=== PATIENT | female | born 1935 | race African-American/Black ===

== ENCOUNTER 2016-10-03 12:16 | Emergency (ER) | payer MEDICARE ==
[~2016-10-03] VITALS: Ht 171.4 cm; Wt 111.0 kg
[~2016-10-03 12:16] MED LIST: AZOPT LEFTEYE; BRIM10DR2 LEFTEYE; METH50TA4 PO; RIVA20TA PO; TRAV2.5D LEFTEYE; VERA240C2 PO
[2016-10-03 13:13] LABS: EOSINOPHILS % 3.2 % (0.0-5.0); HEMATOCRIT. 38.9 % (36.0-48.0); HEMOGLOBIN. 12.9 g/dL (12.0-16.0); LYMPHOCYTES % 33.7 % (20.0-50.0); MEAN CORPUSCULAR HEMOGLOBIN 30.1 pg (28.0-32.0); MEAN PLATELET VOLUME 8.7 fl (7.4-10.4); MONOCYTES % 9.8 % (2.0-8.0); NEUTROPHILS % 52.3 % (40.0-76.0); PLATELET 254 x1000/uL (130-400); RED BLOOD CELL COUNT 4.27 mill/uL (4.2-5.4); RED CELL DISTRIBUTION WIDTH 14.8 % (11.6-14.6)
[2016-10-03 13:21] LABS: INR 1.2; PROTHROMBIN TIME 12.4 sec
[2016-10-03 13:30] LABS: CARBON DIOXIDE 27 mEq/L (21-32); CHLORIDE 107 mEq/L (98-107); TROPONIN I < 0.02 ng/mL (0.00-0.04)
[2016-10-03 15:00] VITALS: BP 151/74
== END 2016-10-03 15:11 | disposition home or self-care (01) ==
LOC: ER 13:30
DX: R06.09 Other forms of dyspnea (principal); H40.9 Unspecified glaucoma; I10 Essential (primary) hypertension; Z86.711 Personal history of pulmonary embolism; Z79.01 Long term (current) use of anticoagulants; Z96.659 Presence of unspecified artificial knee joint
CPT/HCPCS: 36415; 71010; 80053; 83880; 84484; 85025; 85610; 93005; 93971; 99285

== ENCOUNTER 2018-06-03 09:35 | Emergency (ER) | payer MEDICARE ==
[~2018-06-03] VITALS: Ht 170.2 cm; Wt 109.0 kg
[~2018-06-03 09:35] MED LIST changes: -METH50TA4 PO; +METH50TA5 PO
[2018-06-03 09:38] VITALS: BP 168/64
== END 2018-06-03 14:39 | disposition left against medical advice (07) ==
LOC: ER 10:12
DX: Z53.21 Procedure and treatment not carried out due to patient leaving prior to being seen by health care provider (principal)

== ENCOUNTER 2018-11-12 14:29 | Emergency (ER) | payer MEDICARE ==
[~2018-11-12] VITALS: Ht 170.2 cm; Wt 80.0 kg
[~2018-11-12 14:29] MED LIST changes: +ACET-2708 MT; +FERR325T6 MT; +LORA10TA7 MT; -METH50TA5 PO; -RIVA20TA PO; +VALS160T28 MT; -VERA240C2 PO
[2018-11-12 16:04] LABS: CHLORIDE 110 mEq/L (98-107)
[2018-11-12 16:07] LABS: BASOPHILS % 1.2 % (0.0-2.0); EOSINOPHILS % 1.8 % (0.0-5.0); HEMATOCRIT. 30.5 % (36.0-48.0); HEMOGLOBIN. 10.2 g/dL (12.0-16.0); LYMPHOCYTES % 24.7 % (20.0-50.0); MEAN CORPUSCULAR VOLUME 92.9 fL (81.0-99.0); MEAN PLATELET VOLUME 8.8 fl (7.4-10.4); MONOCYTES % 11.1 % (2.0-8.0); NEUTROPHILS % 61.2 % (40.0-76.0); PLATELET 245 x1000/uL (130-400); RED BLOOD CELL COUNT 3.28 mill/uL (4.2-5.4); RED CELL DISTRIBUTION WIDTH 15.9 % (11.6-14.6)
[2018-11-12 17:08] VITALS: BP 140/58
== END 2018-11-12 18:36 | disposition home or self-care (01) ==
LOC: ER 14:29 → CANBEDREQ 19:20
DX: R55 Syncope and collapse (principal); D64.9 Anemia, unspecified; I10 Essential (primary) hypertension; Z96.659 Presence of unspecified artificial knee joint; Z87.19 Personal history of other diseases of the digestive system; Z79.01 Long term (current) use of anticoagulants
CPT/HCPCS: 36415; 71045; 83880; 84484; 93005; 99284

== ENCOUNTER 2019-06-01 05:51 | Inpatient (IN) | payer MEDICARE ==
[~2019-06-01] VITALS: Ht 172.7 cm; Wt 108.0 kg
[2019-06-01] MEDS ORDERED: LACTATED RINGERS 1,000 ML IV SCH (06:00)
[2019-06-01 07:13] LABS: CLARITY URINE CLEAR (CLEAR); COLOR URINE YELLOW (YELLOW); KETONES URINE NEGATIVE (NEGATIVE); LEUKOCYTE ESTERASE URINE TRACE (NEGATIVE); NITRITE URINE NEGATIVE (NEGATIVE); OCCULT BLOOD URINE NEGATIVE (NEGATIVE); PROTEIN URINE NEGATIVE (NEGATIVE); SPECIFIC GRAVITY URINE 1.012 (1.005-1.030); UROBILINOGEN URINE 0.2 E.U./dL (0.2-1.0)
[2019-06-01] MEDS ORDERED: TRANEXAMIC ACID 1,000 MG in SODIUM CHLORIDE 0.9% 100 ML IV SCH (07:30)
[2019-06-01] MEDS ORDERED: FENTANYL CITRATE/PF 50MCG/ML 2ML VIAL ONE (08:17)
[2019-06-01] MEDS ORDERED: PROPOFOL 200MG/20ML VIAL IV ONE (08:17)
[2019-06-01] MEDS ORDERED: EPHEDRINE SULFATE 50MG/ML VIAL ONE (08:18)
[2019-06-01] MEDS ORDERED: ONDANSETRON HCL 4MG/2ML INJ ONE (08:18)
[2019-06-01] MEDS ORDERED: METOCLOPRAMIDE HCL 10MG/2ML VIAL ONE (08:18)
[2019-06-01] MEDS ORDERED: CEFAZOLIN SODIUM 1000MG/VIAL ONE (08:18)
[2019-06-01] MEDS ORDERED: HYDROCORTISONE SOD SUCCINATE 100 MG/2 ML VIAL ONE (08:18)
[2019-06-01] MEDS ORDERED: LIDOCAINE HCL/PF 1% 10 MG/ML 5ML VIAL ONE (08:18)
[2019-06-01] MEDS ORDERED: ROCURONIUM BROMIDE 10MG/ML VIAL 5ML IV ONE ×2 (08:19→09:38)
[2019-06-01] MEDS ORDERED: MIDAZOLAM HCL 2 MG/2 ML VIAL ONE (08:43)
[2019-06-01] MEDS ORDERED: ACETAMINOPHEN 325MG TABLET PO PRN (08:45)
[2019-06-01] MEDS ORDERED: HYDROCODONE/ACETAMINOPHEN 5/325MG TABLET PO PRN ×2 (08:45)
[2019-06-01] MEDS ORDERED: ONDANSETRON HCL 4MG/2ML INJ IV PRN (08:45)
[2019-06-01] MEDS ORDERED: ZOLPIDEM TARTRATE 5MG TABLET PO PRN (08:45)
[2019-06-01] MEDS ORDERED: MAGNESIUM HYDROXIDE 400MG/5ML 30ML UDC PO PRN (08:45)
[2019-06-01] MEDS ORDERED: EPINEPHRINE 1:1000 1 MG/ML AMP ONE (09:31)
[2019-06-01 09:32] LABS: CLARITY URINE CLEAR (CLEAR); COLOR URINE YELLOW (YELLOW); KETONES URINE NEGATIVE (NEGATIVE); LEUKOCYTE ESTERASE URINE NEGATIVE (NEGATIVE); NITRITE URINE NEGATIVE (NEGATIVE); OCCULT BLOOD URINE NEGATIVE (NEGATIVE); PROTEIN URINE NEGATIVE (NEGATIVE); SPECIFIC GRAVITY URINE 1.007 (1.005-1.030); UROBILINOGEN URINE 0.2 E.U./dL (0.2-1.0)
[2019-06-01] MEDS ORDERED: NAPR220T66 PO (12:32)
[2019-06-01] MEDS ORDERED: GLYCOPYRROLATE 0.2 MG/ML 2ML VIAL ONE (14:08)
[2019-06-01] MEDS ORDERED: NEOSTIGMINE METHYLSULFATE 1MG/ML 10 ML VIAL ONE (14:08)
[2019-06-01] MEDS: HYDROMORPHONE HCL/PF 2MG/ML CPJ IV PRN ×2 (14:43→15:05)
[2019-06-01] MEDS ORDERED: MORPHINE PCA 50MG/50ML IV PRN (15:30)
[2019-06-01] MEDS ORDERED: NALOXONE INJ IV PRN (15:30)
[2019-06-01] MEDS ORDERED: ONDANSETRON INJ IV PRN (15:30)
[2019-06-01] MEDS ORDERED: DIPHENHYDRAMINE INJ IV PRN (15:30)
[2019-06-01 18:02] VITALS: BP 127/51
[2019-06-01 20:00] VITALS: BP 126/46
[2019-06-01] MEDS: CEFAZOLIN 2,000 MG in DEXT 5% WATER 100 ML IV SCH (20:08)
[2019-06-02] VITALS: BP 116/45
[2019-06-02 04:00] VITALS: BP 124/52
[2019-06-02 06:27] LABS: BASOPHILS % 0.3 % (0.0-2.0); EOSINOPHILS % 0.1 % (0.0-5.0); HEMATOCRIT. 31.4 % (36.0-48.0); HEMOGLOBIN. 10.6 g/dL (12.0-16.0); LYMPHOCYTES % 14.1 % (20.0-50.0); MEAN CORPUSCULAR HEMOGLOBIN 30.8 pg (28.0-32.0); MEAN CORPUSCULAR VOLUME 91.1 fL (81.0-99.0); MEAN PLATELET VOLUME 8.7 fl (7.4-10.4); MONOCYTES % 11.2 % (2.0-8.0); NEUTROPHILS % 74.3 % (40.0-76.0); PLATELET 196 x1000/uL (130-400); RED BLOOD CELL COUNT 3.45 mill/uL (4.2-5.4); RED CELL DISTRIBUTION WIDTH 15.8 % (11.6-14.6)
[2019-06-02 06:30] LABS: CHLORIDE 111 mEq/L (98-107)
[2019-06-02 08:00] VITALS: BP 109/40
[2019-06-02] MEDS: ENOXAPARIN 30MG/0.3ML SYR SUBCUT SCH ×2 (08:39→21:09)
[2019-06-02] MEDS: CEFAZOLIN 2,000 MG in DEXT 5% WATER 100 ML IV SCH (08:39)
[2019-06-02 12:00] VITALS: BP 117/46
[2019-06-02] MEDS: LOSARTAN POTASSIUM 50 MG TABLET PO SCH (13:00)
[2019-06-02 16:00] VITALS: BP 117/55
[2019-06-02] MEDS ORDERED: TRAMADOL HCL/ACETAMINOPHEN 37.5/325MG TABLET PO PRN (17:45)
[2019-06-02 20:00] VITALS: BP 115/45
[2019-06-02] MEDS: LATANOPROST 0.005% OPHTH DROPS 2.5ML BOTHEYE SCH ×2 (21:00→21:08)
[2019-06-02] MEDS: DORZOLAMIDE 2% OPHTH 10 ML BOTTLE BOTHEYE SCH ×2 (21:00→21:08)
[2019-06-02] MEDS: BRIMONIDINE 0.2% OPHTH DROPS 5ML BOTHEYE SCH (21:08)
[2019-06-02] MEDS: TIMOLOL MALEATE 0.25% OPHTH DROPS 5ML EACHEYE SCH (21:08)
[2019-06-03] VITALS: BP 117/55
[2019-06-03 04:00] VITALS: BP 119/46
[2019-06-03 08:00] VITALS: BP 120/51
[2019-06-03] MEDS: DORZOLAMIDE 2% OPHTH 10 ML BOTTLE BOTHEYE SCH ×2 (09:01→21:18)
[2019-06-03] MEDS: BRIMONIDINE 0.2% OPHTH DROPS 5ML BOTHEYE SCH ×2 (09:01→21:18)
[2019-06-03] MEDS: TIMOLOL MALEATE 0.25% OPHTH DROPS 5ML EACHEYE SCH ×2 (09:01→21:18)
[2019-06-03] MEDS: ENOXAPARIN 30MG/0.3ML SYR SUBCUT SCH ×2 (09:02→21:22)
[2019-06-03] MEDS: LOSARTAN POTASSIUM 50 MG TABLET PO SCH (09:03)
[2019-06-03] MEDS: FERROUS SULFATE 325MG TABLET PO SCH (09:03)
[2019-06-03] MEDS: DOCUSATE SODIUM 100MG CAPSULE PO SCH ×2 (09:03→18:50)
[2019-06-03 12:00] VITALS: BP 99/46
[2019-06-03 16:00] VITALS: BP 131/50
[2019-06-03] MEDS: LACTULOSE 20G/30ML UDC PO SCH ×2 (17:15→21:00)
[2019-06-03] MEDS ORDERED: SODIUM CHLORIDE 0.9% 1,000 ML IV SCH (18:30)
[2019-06-03 20:00] VITALS: BP 128/60
[2019-06-03] MEDS ORDERED: POLYETHYLENE GLYCOL 3350 (17GM) 1 DOSE PACK PO SCH (21:00)
[2019-06-03] MEDS: LATANOPROST 0.005% OPHTH DROPS 2.5ML BOTHEYE SCH (21:18)
[2019-06-04] VITALS: BP 122/58
[2019-06-04 04:00] VITALS: BP 133/54
[2019-06-04 07:01] LABS: BASOPHILS % 0.5 % (0.0-2.0); EOSINOPHILS % 0.4 % (0.0-5.0); HEMOGLOBIN. 8.7 g/dL (12.0-16.0); LYMPHOCYTES % 19.9 % (20.0-50.0); MEAN CORPUSCULAR HEMOGLOBIN 30.4 pg (28.0-32.0); MEAN CORPUSCULAR VOLUME 90.5 fL (81.0-99.0); MEAN PLATELET VOLUME 9.2 fl (7.4-10.4); MONOCYTES % 12.5 % (2.0-8.0); NEUTROPHILS % 66.7 % (40.0-76.0); PLATELET 154 x1000/uL (130-400); RED BLOOD CELL COUNT 2.88 mill/uL (4.2-5.4); RED CELL DISTRIBUTION WIDTH 15.7 % (11.6-14.6)
[2019-06-04 08:00] VITALS: BP 145/50
[2019-06-04] MEDS: FERROUS SULFATE 325MG TABLET PO SCH (08:51)
[2019-06-04] MEDS: DOCUSATE SODIUM 100MG CAPSULE PO SCH (08:51)
[2019-06-04] MEDS: ENOXAPARIN 30MG/0.3ML SYR SUBCUT SCH (08:52)
[2019-06-04] MEDS: LACTULOSE 20G/30ML UDC PO SCH ×2 (08:52→13:28)
[2019-06-04] MEDS: DORZOLAMIDE 2% OPHTH 10 ML BOTTLE BOTHEYE SCH (08:55)
[2019-06-04] MEDS: BRIMONIDINE 0.2% OPHTH DROPS 5ML BOTHEYE SCH (08:55)
[2019-06-04] MEDS: TIMOLOL MALEATE 0.25% OPHTH DROPS 5ML EACHEYE SCH (08:55)
[2019-06-04] MEDS ORDERED: DOCUSATE SODIUM 100MG CAPSULE PO SCH (09:00)
[2019-06-04 12:00] VITALS: BP 143/56
[2019-06-04 15:17] VITALS: BP 145/64
== END 2019-06-04 16:11 | DRG 469 ==
LOC: OR 05:51 → 6EST 05:52
PROVIDERS: ADMIT Internal Medicine; ATTEND Orthopaedic Surgery
PROC: 0SR902Z Replacement of Right Hip Joint with Metal on Polyethylene Synthetic Substitute, Open Approach (ICD-10-PCS; principal; 2019-06-01)
DX: M16.11 Unilateral primary osteoarthritis, right hip (principal); G93.41 Metabolic encephalopathy; G82.50 Quadriplegia, unspecified; E66.01 Morbid (severe) obesity due to excess calories; E11.36 Type 2 diabetes mellitus with diabetic cataract; E11.22 Type 2 diabetes mellitus with diabetic chronic kidney disease; I12.9 Hypertensive chronic kidney disease with stage 1 through stage 4 chronic kidney disease, or unspecified chronic kidney disease; I95.1 Orthostatic hypotension; M47.812 Spondylosis without myelopathy or radiculopathy, cervical region; M47.816 Spondylosis without myelopathy or radiculopathy, lumbar region; N18.1 Chronic kidney disease, stage 1; Z96.651 Presence of right artificial knee joint; Z79.01 Long term (current) use of anticoagulants; G89.29 Other chronic pain; Z87.440 Personal history of urinary (tract) infections; Z86.711 Personal history of pulmonary embolism; Z90.49 Acquired absence of other specified parts of digestive tract; Z79.899 Other long term (current) drug therapy; Z68.36 Body mass index [BMI] 36.0-36.9, adult; D64.9 Anemia, unspecified
CPT/HCPCS: 36415; 73502; 80048; 81003; 82962; 85025; 86850; 86900; 88305; 88311; 93005; 97110; 97116; 97162; 97166; 97530; 97535; C1776; J0171; J0690; J1170; J1650; J1720; J2250; J2270; J2274; J2405; J2704; J2710; J2765; J3010; J3370; J3490; J7030; J7050; J7060

== ENCOUNTER 2019-06-04 16:15 | Inpatient (IN) | payer MEDICARE ==
[~2019-06-04] VITALS: Ht 172.7 cm; Wt 108.0 kg
[~2019-06-04 16:15] MED LIST changes: +NAPR220T66 PO
[2019-06-04 16:47] VITALS: BP 156/59
[2019-06-04] MEDS ORDERED: TRAMADOL HCL/ACETAMINOPHEN 37.5/325MG TABLET PO PRN (17:15)
[2019-06-04] MEDS ORDERED: MAGNESIUM HYDROXIDE 400MG/5ML 30ML UDC PO PRN (17:15)
[2019-06-04] MEDS ORDERED: ONDANSETRON HCL 4MG/2ML INJ IV PRN (17:33)
[2019-06-04] MEDS ORDERED: NALOXONE HCL 1 MG/ML 2ML VIAL IV PRN (18:00)
[2019-06-04 18:01] VITALS: BP 156/59
[2019-06-04] MEDS: LACTULOSE 20G/30ML UDC PO SCH (21:00)
[2019-06-04] MEDS ORDERED: SODIUM CHLORIDE 0.9% 1,000 ML IV SCH (21:00)
[2019-06-04] MEDS: ENOXAPARIN 30MG/0.3ML SYR SUBCUT SCH (21:27)
[2019-06-04] MEDS: TIMOLOL MALEATE 0.25% OPHTH DROPS 5ML EACHEYE SCH (21:33)
[2019-06-04] MEDS: DORZOLAMIDE 2% OPHTH 10 ML BOTTLE BOTHEYE SCH (21:33)
[2019-06-04] MEDS: BRIMONIDINE 0.2% OPHTH DROPS 5ML BOTHEYE SCH (21:33)
[2019-06-04] MEDS: LATANOPROST 0.005% OPHTH DROPS 2.5ML BOTHEYE SCH (21:33)
[2019-06-05 07:07] LABS: BASOPHILS % 1.1 % (0.0-2.0); EOSINOPHILS % 0.9 % (0.0-5.0); HEMOGLOBIN. 8.9 g/dL (12.0-16.0); LYMPHOCYTES % 20.4 % (20.0-50.0); MEAN CORPUSCULAR HEMOGLOBIN 30.9 pg (28.0-32.0); MEAN CORPUSCULAR VOLUME 90.8 fL (81.0-99.0); MEAN PLATELET VOLUME 9.1 fl (7.4-10.4); MONOCYTES % 13.9 % (2.0-8.0); NEUTROPHILS % 63.7 % (40.0-76.0); PLATELET 202 x1000/uL (130-400); RED BLOOD CELL COUNT 2.86 mill/uL (4.2-5.4); RED CELL DISTRIBUTION WIDTH 15.6 % (11.6-14.6)
[2019-06-05 07:36] LABS: CHLORIDE 110 mEq/L (98-107)
[2019-06-05 08:21] VITALS: BP 176/63
[2019-06-05 08:23] VITALS: BP 158/72
[2019-06-05] MEDS: DOCUSATE SODIUM 100MG CAPSULE PO SCH ×2 (08:52→16:25)
[2019-06-05] MEDS: POLYETHYLENE GLYCOL 3350 (17GM) 1 DOSE PACK PO SCH (08:52)
[2019-06-05] MEDS: FERROUS SULFATE 325MG TABLET PO SCH (08:52)
[2019-06-05] MEDS: LACTULOSE 20G/30ML UDC PO SCH (08:52)
[2019-06-05] MEDS: ENOXAPARIN 30MG/0.3ML SYR SUBCUT SCH ×2 (08:53→21:08)
[2019-06-05] MEDS: DORZOLAMIDE 2% OPHTH 10 ML BOTTLE BOTHEYE SCH ×2 (08:53→21:09)
[2019-06-05] MEDS: TIMOLOL MALEATE 0.25% OPHTH DROPS 5ML EACHEYE SCH ×2 (08:53→21:09)
[2019-06-05] MEDS: BRIMONIDINE 0.2% OPHTH DROPS 5ML BOTHEYE SCH ×2 (08:54→21:09)
[2019-06-05] MEDS ORDERED: LACTULOSE 20G/30ML UDC PO SCH (13:00)
[2019-06-05 20:00] VITALS: BP 169/54
[2019-06-05] MEDS: LATANOPROST 0.005% OPHTH DROPS 2.5ML BOTHEYE SCH (21:09)
[2019-06-06 07:00] LABS: HEMATOCRIT. 24.4 % (36.0-48.0); HEMOGLOBIN. 8.3 g/dL (12.0-16.0); MEAN CORPUSCULAR HEMOGLOBIN 30.7 pg (28.0-32.0); MEAN CORPUSCULAR VOLUME 90.7 fL (81.0-99.0); PLATELET 208 x1000/uL (130-400); RED BLOOD CELL COUNT 2.69 mill/uL (4.2-5.4); RED CELL DISTRIBUTION WIDTH 15.4 % (11.6-14.6)
[2019-06-06 07:01] LABS: CHLORIDE 111 mEq/L (98-107)
[2019-06-06 07:12] LABS: PHOSPHORUS 2.4 mg/dL (2.5-4.9)
[2019-06-06 07:13] LABS: TOTAL IRON BINDING CAPACITY 243 ug/dL (250-450)
[2019-06-06 07:20] LABS: FOLIC ACID (FOLATE) SERUM 13.5 ng/mL (>5.38)
[2019-06-06 08:15] VITALS: BP 154/74
[2019-06-06] MEDS: DOCUSATE SODIUM 100MG CAPSULE PO SCH ×2 (09:00→18:10)
[2019-06-06] MEDS ORDERED: LOSARTAN POTASSIUM 25 MG TABLET PO SCH (09:00)
[2019-06-06] MEDS: POLYETHYLENE GLYCOL 3350 (17GM) 1 DOSE PACK PO SCH ×2 (09:00→09:36)
[2019-06-06] MEDS: LACTULOSE 20G/30ML UDC PO SCH ×4 (09:00→21:49)
[2019-06-06] MEDS: ACETAMINOPHEN 325MG TABLET PO PRN (09:06)
[2019-06-06] MEDS: BRIMONIDINE 0.2% OPHTH DROPS 5ML BOTHEYE SCH ×2 (09:33→21:51)
[2019-06-06] MEDS: DORZOLAMIDE 2% OPHTH 10 ML BOTTLE BOTHEYE SCH ×2 (09:34→21:50)
[2019-06-06] MEDS: TIMOLOL MALEATE 0.25% OPHTH DROPS 5ML EACHEYE SCH ×2 (09:35→21:51)
[2019-06-06] MEDS: FERROUS SULFATE 325MG TABLET PO SCH ×2 (09:36→18:10)
[2019-06-06] MEDS: ENOXAPARIN 30MG/0.3ML SYR SUBCUT SCH ×2 (09:36→21:49)
[2019-06-06 11:44] LABS: PLATELET ESTIMATE NORMAL
[2019-06-06] MEDS: CYANOCOBALAMIN 1000MCG/ML VIAL IM ONE (13:00)
[2019-06-06] MEDS ORDERED: THROAT LOZENGES-BENZOCAINE/MENTH/CETYLPYRD CL LOZENGES MM PRN ×2 (13:00→14:00)
[2019-06-06 13:05] LABS: CLARITY URINE CLEAR (CLEAR); COLOR URINE YELLOW (YELLOW); KETONES URINE NEGATIVE (NEGATIVE); LEUKOCYTE ESTERASE URINE NEGATIVE (NEGATIVE); NITRITE URINE NEGATIVE (NEGATIVE); OCCULT BLOOD URINE NEGATIVE (NEGATIVE); PH URINE 6.5 (4.5-8.0); PROTEIN URINE 1+ (NEGATIVE); SPECIFIC GRAVITY URINE 1.015 (1.005-1.030)
[2019-06-06] MEDS ORDERED: FERROUS SULFATE 325MG TABLET PO SCH (17:00)
[2019-06-06] MEDS ORDERED: CYANOCOBALAMIN 1000MCG/ML VIAL IM NR (18:15)
[2019-06-06 20:05] VITALS: BP 154/51
[2019-06-06] MEDS ORDERED: IRON SUCROSE COMPLEX 100 MG in SODIUM CHLORIDE 0.9% 100 ML IV SCH (21:00)
[2019-06-06] MEDS: LATANOPROST 0.005% OPHTH DROPS 2.5ML BOTHEYE SCH (21:51)
[2019-06-07] MEDS: LOSARTAN POTASSIUM 25 MG TABLET PO SCH ×3 (00:25→20:59)
[2019-06-07 00:30] VITALS: BP 143/63
[2019-06-07 06:47] LABS: BASOPHILS % 1.2 % (0.0-2.0); HEMATOCRIT. 25.3 % (36.0-48.0); HEMOGLOBIN. 8.5 g/dL (12.0-16.0); LYMPHOCYTES % 30.2 % (20.0-50.0); MEAN CORPUSCULAR HEMOGLOBIN 30.3 pg (28.0-32.0); MEAN CORPUSCULAR VOLUME 90.3 fL (81.0-99.0); MEAN PLATELET VOLUME 8.5 fl (7.4-10.4); MONOCYTES % 14.4 % (2.0-8.0); NEUTROPHILS % 50.2 % (40.0-76.0); PLATELET 242 x1000/uL (130-400); RED BLOOD CELL COUNT 2.81 mill/uL (4.2-5.4); RED CELL DISTRIBUTION WIDTH 14.8 % (11.6-14.6)
[2019-06-07 07:05] LABS: CHLORIDE 110 mEq/L (98-107)
[2019-06-07 07:56] VITALS: BP 123/58
[2019-06-07] MEDS: TIMOLOL MALEATE 0.25% OPHTH DROPS 5ML EACHEYE SCH ×2 (08:31→21:00)
[2019-06-07] MEDS: LACTULOSE 20G/30ML UDC PO SCH ×5 (08:31→20:59)
[2019-06-07] MEDS: ENOXAPARIN 30MG/0.3ML SYR SUBCUT SCH ×2 (08:31→20:59)
[2019-06-07] MEDS: BRIMONIDINE 0.2% OPHTH DROPS 5ML BOTHEYE SCH ×2 (08:31→20:58)
[2019-06-07] MEDS: DORZOLAMIDE 2% OPHTH 10 ML BOTTLE BOTHEYE SCH ×2 (08:31→20:58)
[2019-06-07] MEDS: FERROUS SULFATE 325MG TABLET PO SCH ×2 (08:31→17:25)
[2019-06-07] MEDS: DOCUSATE SODIUM 100MG CAPSULE PO SCH ×2 (08:31→17:25)
[2019-06-07] MEDS: POLYETHYLENE GLYCOL 3350 (17GM) 1 DOSE PACK PO SCH (08:59)
[2019-06-07] MEDS: TRAMADOL 50MG TABLET PO PRN (12:54)
[2019-06-07 20:00] VITALS: BP 151/56
[2019-06-07] MEDS: LATANOPROST 0.005% OPHTH DROPS 2.5ML BOTHEYE SCH (20:58)
[2019-06-08 07:49] VITALS: BP 137/58
[2019-06-08 08:00] VITALS: BP 137/58
[2019-06-08] MEDS: TRAMADOL 50MG TABLET PO PRN (08:31)
[2019-06-08] MEDS: DOCUSATE SODIUM 100MG CAPSULE PO SCH ×2 (08:31→16:13)
[2019-06-08] MEDS: LOSARTAN POTASSIUM 25 MG TABLET PO SCH ×2 (08:31→21:00)
[2019-06-08] MEDS: FERROUS SULFATE 325MG TABLET PO SCH ×2 (08:31→16:13)
[2019-06-08] MEDS: TIMOLOL MALEATE 0.25% OPHTH DROPS 5ML EACHEYE SCH ×2 (08:32→20:59)
[2019-06-08] MEDS: BRIMONIDINE 0.2% OPHTH DROPS 5ML BOTHEYE SCH ×2 (08:32→20:58)
[2019-06-08] MEDS: LACTULOSE 20G/30ML UDC PO SCH ×5 (08:32→21:00)
[2019-06-08] MEDS: DORZOLAMIDE 2% OPHTH 10 ML BOTTLE BOTHEYE SCH ×2 (08:32→20:58)
[2019-06-08] MEDS: POLYETHYLENE GLYCOL 3350 (17GM) 1 DOSE PACK PO SCH (08:32)
[2019-06-08] MEDS: ENOXAPARIN 30MG/0.3ML SYR SUBCUT SCH ×2 (08:32→20:57)
[2019-06-08] MEDS: ACETAMINOPHEN 325MG TABLET PO PRN ×2 (13:01→21:20)
[2019-06-08] MEDS: IBUPROFEN 200MG TABLET PO SCH (17:36)
[2019-06-08] MEDS: LIDOCAINE 5% PATCH TOP SCH (17:37)
[2019-06-08] MEDS: ACETAMINOPHEN 325MG TABLET PO SCH (17:37)
[2019-06-08 20:00] VITALS: BP 119/58
[2019-06-08] MEDS: LATANOPROST 0.005% OPHTH DROPS 2.5ML BOTHEYE SCH (20:58)
[2019-06-09] MEDS: IBUPROFEN 200MG TABLET PO SCH ×3 (07:48→17:00)
[2019-06-09 08:00] VITALS: BP 142/61
[2019-06-09] MEDS: DOCUSATE SODIUM 100MG CAPSULE PO SCH ×2 (08:46→17:00)
[2019-06-09] MEDS: FERROUS SULFATE 325MG TABLET PO SCH ×2 (08:46→17:38)
[2019-06-09] MEDS: POLYETHYLENE GLYCOL 3350 (17GM) 1 DOSE PACK PO SCH (08:47)
[2019-06-09] MEDS: ACETAMINOPHEN 325MG TABLET PO SCH ×3 (08:47→17:38)
[2019-06-09] MEDS: LACTULOSE 20G/30ML UDC PO SCH ×4 (08:47→21:00)
[2019-06-09] MEDS: LOSARTAN POTASSIUM 25 MG TABLET PO SCH ×2 (08:47→21:36)
[2019-06-09] MEDS: BRIMONIDINE 0.2% OPHTH DROPS 5ML BOTHEYE SCH ×2 (08:48→21:36)
[2019-06-09] MEDS: DORZOLAMIDE 2% OPHTH 10 ML BOTTLE BOTHEYE SCH ×2 (08:50→21:35)
[2019-06-09] MEDS: TIMOLOL MALEATE 0.25% OPHTH DROPS 5ML EACHEYE SCH ×2 (08:51→21:36)
[2019-06-09] MEDS: LIDOCAINE 5% PATCH TOP SCH (08:58)
[2019-06-09] MEDS: ENOXAPARIN 30MG/0.3ML SYR SUBCUT SCH ×2 (08:58→21:37)
[2019-06-09] MEDS: OMEPRAZOLE 20MG CAPSULE EXTENDED RELEASE PO SCH (17:38)
[2019-06-09 20:00] VITALS: BP 157/54
[2019-06-09] MEDS: LATANOPROST 0.005% OPHTH DROPS 2.5ML BOTHEYE SCH (21:36)
[2019-06-10] MEDS: OMEPRAZOLE 20MG CAPSULE EXTENDED RELEASE PO SCH (06:18)
[2019-06-10 07:00] LABS: BASOPHILS % 1.2 % (0.0-2.0); EOSINOPHILS % 3.8 % (0.0-5.0); HEMATOCRIT. 26.1 % (36.0-48.0); HEMOGLOBIN. 8.8 g/dL (12.0-16.0); LYMPHOCYTES % 35.2 % (20.0-50.0); MEAN CORPUSCULAR HEMOGLOBIN 30.9 pg (28.0-32.0); MEAN CORPUSCULAR VOLUME 91.6 fL (81.0-99.0); MEAN PLATELET VOLUME 8.3 fl (7.4-10.4); MONOCYTES % 10.9 % (2.0-8.0); NEUTROPHILS % 48.9 % (40.0-76.0); PLATELET 360 x1000/uL (130-400); RED BLOOD CELL COUNT 2.85 mill/uL (4.2-5.4); RED CELL DISTRIBUTION WIDTH 15.5 % (11.6-14.6)
[2019-06-10 07:12] LABS: CHLORIDE 111 mEq/L (98-107)
[2019-06-10] MEDS: IBUPROFEN 200MG TABLET PO SCH ×2 (07:33→12:35)
[2019-06-10 08:00] VITALS: BP 131/63
[2019-06-10] MEDS: LOSARTAN POTASSIUM 25 MG TABLET PO SCH ×2 (08:53→21:21)
[2019-06-10] MEDS: FERROUS SULFATE 325MG TABLET PO SCH ×2 (08:53→16:40)
[2019-06-10] MEDS: ACETAMINOPHEN 325MG TABLET PO SCH ×3 (08:53→16:40)
[2019-06-10] MEDS: DOCUSATE SODIUM 100MG CAPSULE PO SCH ×2 (08:53→16:40)
[2019-06-10] MEDS: LACTULOSE 20G/30ML UDC PO SCH ×4 (08:54→21:00)
[2019-06-10] MEDS: POLYETHYLENE GLYCOL 3350 (17GM) 1 DOSE PACK PO SCH (08:54)
[2019-06-10] MEDS: ENOXAPARIN 30MG/0.3ML SYR SUBCUT SCH ×2 (08:54→21:24)
[2019-06-10] MEDS: LIDOCAINE 5% PATCH TOP SCH (08:54)
[2019-06-10] MEDS: BRIMONIDINE 0.2% OPHTH DROPS 5ML BOTHEYE SCH ×2 (08:56→21:20)
[2019-06-10] MEDS: DORZOLAMIDE 2% OPHTH 10 ML BOTTLE BOTHEYE SCH ×2 (08:56→21:20)
[2019-06-10] MEDS: TIMOLOL MALEATE 0.25% OPHTH DROPS 5ML EACHEYE SCH ×2 (08:57→21:20)
[2019-06-10 13:06] LABS: 25-HYDROXY VITAMIN D3 19 ng/mL (.)
[2019-06-10] MEDS ORDERED: ERGOCALCIFEROL 50000UNITS CAPSULE PO SCH ×2 (18:00→21:00)
[2019-06-10 20:00] VITALS: BP 132/55
[2019-06-10] MEDS: LATANOPROST 0.005% OPHTH DROPS 2.5ML BOTHEYE SCH (21:20)
[2019-06-11] MEDS: OMEPRAZOLE 20MG CAPSULE EXTENDED RELEASE PO SCH (06:21)
[2019-06-11 08:00] VITALS: BP 137/54
[2019-06-11] MEDS: POLYETHYLENE GLYCOL 3350 (17GM) 1 DOSE PACK PO SCH (08:32)
[2019-06-11] MEDS: ENOXAPARIN 30MG/0.3ML SYR SUBCUT SCH ×2 (08:34→22:48)
[2019-06-11] MEDS: LIDOCAINE 5% PATCH TOP SCH (08:39)
[2019-06-11] MEDS: ACETAMINOPHEN 325MG TABLET PO PRN (08:39)
[2019-06-11] MEDS: DOCUSATE SODIUM 100MG CAPSULE PO SCH ×2 (08:40→17:34)
[2019-06-11] MEDS: LOSARTAN POTASSIUM 25 MG TABLET PO SCH ×2 (08:40→22:47)
[2019-06-11] MEDS: BRIMONIDINE 0.2% OPHTH DROPS 5ML BOTHEYE SCH ×2 (08:40→22:53)
[2019-06-11] MEDS: FERROUS SULFATE 325MG TABLET PO SCH ×2 (08:40→17:34)
[2019-06-11] MEDS: TIMOLOL MALEATE 0.25% OPHTH DROPS 5ML EACHEYE SCH ×2 (08:40→22:52)
[2019-06-11] MEDS: DORZOLAMIDE 2% OPHTH 10 ML BOTTLE BOTHEYE SCH ×2 (08:41→22:53)
[2019-06-11 20:00] VITALS: BP 145/46
[2019-06-11] MEDS: LATANOPROST 0.005% OPHTH DROPS 2.5ML BOTHEYE SCH (22:52)
[2019-06-12] MEDS: OMEPRAZOLE 20MG CAPSULE EXTENDED RELEASE PO SCH (07:00)
[2019-06-12 07:50] VITALS: BP 132/59
[2019-06-12] MEDS: LOSARTAN POTASSIUM 25 MG TABLET PO SCH ×2 (08:02→21:07)
[2019-06-12] MEDS: FERROUS SULFATE 325MG TABLET PO SCH ×2 (08:03→17:00)
[2019-06-12] MEDS: DOCUSATE SODIUM 100MG CAPSULE PO SCH ×2 (08:03→17:00)
[2019-06-12] MEDS: LIDOCAINE 5% PATCH TOP SCH (08:03)
[2019-06-12] MEDS: ENOXAPARIN 30MG/0.3ML SYR SUBCUT SCH ×2 (08:03→21:08)
[2019-06-12] MEDS: TIMOLOL MALEATE 0.25% OPHTH DROPS 5ML EACHEYE SCH ×2 (08:04→21:07)
[2019-06-12] MEDS: DORZOLAMIDE 2% OPHTH 10 ML BOTTLE BOTHEYE SCH ×2 (08:04→21:07)
[2019-06-12] MEDS: POLYETHYLENE GLYCOL 3350 (17GM) 1 DOSE PACK PO SCH (08:04)
[2019-06-12] MEDS: BRIMONIDINE 0.2% OPHTH DROPS 5ML BOTHEYE SCH ×2 (08:04→21:07)
[2019-06-12] MEDS ORDERED: TRAMADOL 50MG TABLET PO PRN (19:00)
[2019-06-12 20:00] VITALS: BP 144/45
[2019-06-12] MEDS: LATANOPROST 0.005% OPHTH DROPS 2.5ML BOTHEYE SCH (21:07)
[2019-06-13] MEDS: OMEPRAZOLE 20MG CAPSULE EXTENDED RELEASE PO SCH (06:20)
[2019-06-13 06:54] LABS: HEMATOCRIT. 24.7 % (36.0-48.0); HEMOGLOBIN. 8.4 g/dL (12.0-16.0); LYMPHOCYTES % 30.8 % (20.0-50.0); MEAN CORPUSCULAR VOLUME 91.1 fL (81.0-99.0); MEAN PLATELET VOLUME 8.2 fl (7.4-10.4); MONOCYTES % 8.6 % (2.0-8.0); NEUTROPHILS % 56.6 % (40.0-76.0); PLATELET 376 x1000/uL (130-400); RED BLOOD CELL COUNT 2.71 mill/uL (4.2-5.4); RED CELL DISTRIBUTION WIDTH 15.4 % (11.6-14.6)
[2019-06-13 07:17] LABS: CHLORIDE 112 mEq/L (98-107)
[2019-06-13 08:00] VITALS: BP 131/47
[2019-06-13] MEDS: ENOXAPARIN 30MG/0.3ML SYR SUBCUT SCH ×2 (08:53→20:52)
[2019-06-13] MEDS: LOSARTAN POTASSIUM 25 MG TABLET PO SCH ×2 (08:54→20:52)
[2019-06-13] MEDS: TIMOLOL MALEATE 0.25% OPHTH DROPS 5ML EACHEYE SCH ×2 (08:54→20:52)
[2019-06-13] MEDS: LIDOCAINE 5% PATCH TOP SCH (08:54)
[2019-06-13] MEDS: DOCUSATE SODIUM 100MG CAPSULE PO SCH ×2 (08:54→17:12)
[2019-06-13] MEDS: FERROUS SULFATE 325MG TABLET PO SCH ×2 (08:54→17:12)
[2019-06-13] MEDS: DORZOLAMIDE 2% OPHTH 10 ML BOTTLE BOTHEYE SCH ×2 (08:54→20:53)
[2019-06-13] MEDS: POLYETHYLENE GLYCOL 3350 (17GM) 1 DOSE PACK PO SCH (08:55)
[2019-06-13] MEDS: BRIMONIDINE 0.2% OPHTH DROPS 5ML BOTHEYE SCH ×2 (08:55→20:53)
[2019-06-13 20:00] VITALS: BP 154/60
[2019-06-13] MEDS: LATANOPROST 0.005% OPHTH DROPS 2.5ML BOTHEYE SCH (20:53)
[2019-06-14] MEDS: OMEPRAZOLE 20MG CAPSULE EXTENDED RELEASE PO SCH (06:15)
[2019-06-14 08:25] VITALS: BP 119/44
[2019-06-14] MEDS: FERROUS SULFATE 325MG TABLET PO SCH ×2 (08:48→16:01)
[2019-06-14] MEDS: LOSARTAN POTASSIUM 25 MG TABLET PO SCH ×2 (08:48→22:03)
[2019-06-14] MEDS: ENOXAPARIN 30MG/0.3ML SYR SUBCUT SCH ×2 (08:48→22:09)
[2019-06-14] MEDS: DOCUSATE SODIUM 100MG CAPSULE PO SCH ×2 (08:48→16:04)
[2019-06-14] MEDS: LIDOCAINE 5% PATCH TOP SCH (08:49)
[2019-06-14] MEDS: POLYETHYLENE GLYCOL 3350 (17GM) 1 DOSE PACK PO SCH (08:50)
[2019-06-14] MEDS: TIMOLOL MALEATE 0.25% OPHTH DROPS 5ML EACHEYE SCH ×2 (08:50→22:04)
[2019-06-14] MEDS: DORZOLAMIDE 2% OPHTH 10 ML BOTTLE BOTHEYE SCH ×2 (08:50→22:04)
[2019-06-14] MEDS: BRIMONIDINE 0.2% OPHTH DROPS 5ML BOTHEYE SCH ×2 (08:50→22:04)
[2019-06-14 20:00] VITALS: BP 147/51
[2019-06-14] MEDS: LATANOPROST 0.005% OPHTH DROPS 2.5ML BOTHEYE SCH (22:03)
[2019-06-15] MEDS: OMEPRAZOLE 20MG CAPSULE EXTENDED RELEASE PO SCH (06:20)
[2019-06-15 08:03] VITALS: BP 153/67
[2019-06-15] MEDS: BRIMONIDINE 0.2% OPHTH DROPS 5ML BOTHEYE SCH ×2 (08:17→21:12)
[2019-06-15] MEDS: TIMOLOL MALEATE 0.25% OPHTH DROPS 5ML EACHEYE SCH ×2 (08:17→21:12)
[2019-06-15] MEDS: DORZOLAMIDE 2% OPHTH 10 ML BOTTLE BOTHEYE SCH ×2 (08:17→21:12)
[2019-06-15] MEDS: POLYETHYLENE GLYCOL 3350 (17GM) 1 DOSE PACK PO SCH (08:18)
[2019-06-15] MEDS: LIDOCAINE 5% PATCH TOP SCH (08:18)
[2019-06-15] MEDS: DOCUSATE SODIUM 100MG CAPSULE PO SCH ×2 (08:19→17:00)
[2019-06-15] MEDS: ENOXAPARIN 30MG/0.3ML SYR SUBCUT SCH ×2 (08:19→21:12)
[2019-06-15] MEDS: FERROUS SULFATE 325MG TABLET PO SCH ×2 (08:19→17:26)
[2019-06-15] MEDS: LOSARTAN POTASSIUM 25 MG TABLET PO SCH (08:19)
[2019-06-15 20:00] VITALS: BP 128/79
[2019-06-15] MEDS: LOSARTAN POTASSIUM 50 MG TABLET PO SCH (21:12)
[2019-06-15] MEDS: LATANOPROST 0.005% OPHTH DROPS 2.5ML BOTHEYE SCH (21:12)
[2019-06-16] MEDS: OMEPRAZOLE 20MG CAPSULE EXTENDED RELEASE PO SCH (06:20)
[2019-06-16 08:30] VITALS: BP 140/57
[2019-06-16] MEDS: DOCUSATE SODIUM 100MG CAPSULE PO SCH (09:00)
[2019-06-16] MEDS: POLYETHYLENE GLYCOL 3350 (17GM) 1 DOSE PACK PO SCH (09:00)
[2019-06-16] MEDS ORDERED: AMLODIPINE 2.5MG TABLET PO SCH (09:00)
[2019-06-16] MEDS: LIDOCAINE 5% PATCH TOP SCH (09:09)
[2019-06-16] MEDS: ENOXAPARIN 30MG/0.3ML SYR SUBCUT SCH (09:10)
[2019-06-16] MEDS: TIMOLOL MALEATE 0.25% OPHTH DROPS 5ML EACHEYE SCH (09:10)
[2019-06-16] MEDS: LOSARTAN POTASSIUM 50 MG TABLET PO SCH (09:10)
[2019-06-16] MEDS: FERROUS SULFATE 325MG TABLET PO SCH (09:10)
[2019-06-16] MEDS: BRIMONIDINE 0.2% OPHTH DROPS 5ML BOTHEYE SCH (09:10)
[2019-06-16] MEDS: DORZOLAMIDE 2% OPHTH 10 ML BOTTLE BOTHEYE SCH (09:10)
[2019-06-16 15:14] VITALS: BP 132/58
== END 2019-06-16 16:38 | disposition home health service (06) | DRG 91 ==
PROVIDERS: ADMIT Physical Medicine & Rehabilitation Spinal Cord Injury Medicine; ATTEND Internal Medicine
DX: G92 Toxic encephalopathy (principal); G82.50 Quadriplegia, unspecified; I12.9 Hypertensive chronic kidney disease with stage 1 through stage 4 chronic kidney disease, or unspecified chronic kidney disease; N18.9 Chronic kidney disease, unspecified; E66.01 Morbid (severe) obesity due to excess calories; Z68.36 Body mass index [BMI] 36.0-36.9, adult; R26.9 Unspecified abnormalities of gait and mobility; M79.609 Pain in unspecified limb; R53.81 Other malaise; E11.22 Type 2 diabetes mellitus with diabetic chronic kidney disease; D64.9 Anemia, unspecified; M16.11 Unilateral primary osteoarthritis, right hip; Z96.659 Presence of unspecified artificial knee joint; R33.9 Retention of urine, unspecified; I95.1 Orthostatic hypotension; Z96.643 Presence of artificial hip joint, bilateral; Z90.49 Acquired absence of other specified parts of digestive tract; Z86.711 Personal history of pulmonary embolism; Z79.01 Long term (current) use of anticoagulants; Z82.49 Family history of ischemic heart disease and other diseases of the circulatory system
CPT/HCPCS: 36415; 73502; 80048; 80053; 81003; 82140; 82270; 82306; 82607; 82728; 82746; 83540; 83550; 83735; 84100; 84134; 84443; 85025; 92523; 92610; 93970; 97110; 97116; 97162; 97166; 97530; 97535; J1650; J3420; J7030; J7050